=== PATIENT | male | born 1960 | race Caucasian/White ===

== ENCOUNTER → 2021-08-31 | Emergency (ER) | payer MEDICARE, MEDICAID ==
[~2021-08-31] VITALS: Ht 180.3 cm; Wt 95.5 kg
[~2021-08-31] MED LIST: LORazepam 2 mg/ml vial IM ONE; LORazepam 2 mg/ml vial ONE; OLANZapine **IM** 10 mg inj. IM ONE; OLANZapine 5mg rapidly disint. tablet PO ONE; PROL2.5I IM; RISP50DI IM; acetaminophen 325mg tablet PO ONE; diphenhydrAMINE 25mg capsule PO ONE; diphenhydrAMINE 50 mg/ml inj IM ONE; diphenhydrAMINE 50 mg/ml inj ONE; haloperidol lactate 5mg/ml inj IM ONE; haloperidol lactate 5mg/ml inj ONE; ondansetron 4mg rapidly disintigrating tab PO ONE; ziprasidone IM 20mg inj **IM only IM ONE
[2021-08-31 17:08] LABS: BASOPHILS % (AUTO) 0.6 % (0-1); EOSINOPHILS # (AUTO) 0.1 X10'3 (0-0.9); EOSINOPHILS % (AUTO) 1.6 % (0-6); HEMATOCRIT 43.8 % (42.0-52.0); HEMOGLOBIN 15.1 g/dl (14.0-17.9); LYMPHOCYTES % (AUTO) 20.2 % (21-51); MEAN CORPUSCULAR HEMOGLOBIN 30.4 PG (27.0-31.0); MEAN CORPUSCULAR HGB CONC 34.6 g/dL (33.0-36.5); MEAN CORPUSCULAR VOLUME 87.8 FL (78-98); MEAN PLATELET VOLUME 6.9 FL (7.4-10.4); MONOCYTES # (AUTO) 0.5 X10'3 (0-0.9); MONOCYTES % (AUTO) 9.8 % (2-12); NEUTROPHILS # (AUTO) 3.3 X10'3 (1.8-7.7); NEUTROPHILS % (AUTO) 67.8 % (42-75); PLATELET COUNT 189 X10'3 (140-440); RED BLOOD COUNT 4.98 X10'6 (4.70-6.10); RED CELL DISTRIBUTION WIDTH 13.5 % (11.5-14.5); WHITE BLOOD COUNT 4.8 X10'3 (4.5-11.0)
[2021-08-31 17:32] LABS: ALANINE AMINOTRANSFERASE 24 U/L (12-78); ALBUMIN 3.9 G/DL (3.4-5.0); ALBUMIN/GLOBULIN RATIO 1.1 (1.1-1.5); ALKALINE PHOSPHATASE 84 IU/L (46-116); ANION GAP 11 (8-16); ASPARTATE AMINO TRANSFERASE 31 U/L (10-37); BILIRUBIN,TOTAL 0.5 MG/DL (0.1-1.0); BLOOD UREA NITROGEN 10 MG/DL (7-18); BUN/CREATININE RATIO 8.3 (5.4-32.0); CALCIUM 9.2 MG/DL (8.5-10.1); CHLORIDE 105 MMOL/L (99-107); GLUCOSE 121 MG/DL (70-104); POTASSIUM 3.9 MMOL/L (3.5-5.1); SODIUM 144 MMOL/L (135-145); TOTAL CARBON DIOXIDE 27.9 MMOL/L (24-32); TOTAL PROTEIN 7.6 G/DL (6.4-8.2); eGFR 62 ML/MIN
--- NOTE | 2021-08-31 17:42 | NUR ---
PATIENT PUT IN GREEN GOWNS WITH UNDERGROUND MINING SECTION FOREMAN OFFICERS, BELONGINGS PUT IN BAG BY DEPUTIES.
[2021-08-31 17:44] LABS: ETHANOL < 0.010 GM/DL (0.0-0.010)
[2021-08-31 18:47] LABS: URINE AMPHETAMINE SCREEN NEGATIVE (Neg); URINE BARBITUATE SCREEN NEGATIVE (Neg); URINE BENZODIAZEPINES SCREEN NEGATIVE (Neg); URINE CANNABINOID SCREEN NEGATIVE (Neg); URINE COCAINE SCREEN NEGATIVE (Neg); URINE METHADONE SCREEN NEGATIVE (Neg); URINE OPIATE SCREEN NEGATIVE (Neg); URINE PHENCYCLIDINE SCREEN NEGATIVE (Neg)
--- NOTE | 2021-08-31 19:19 | NUR ---
The patient was moved to bed 26 in the ER overflow. He was quiet and pacing around his bed. At one point he was redirected back to his bed area by a male staff and he screamed back "Fuck you! You don't know who you are dealing with!" He did however go back to his bed. He was cooperative with the assessment however. He was asked why he was here and his reply was disarganized, fast, pressured and difficult to follow. He mentioned about something about [employer], television etc.
[2021-08-31 19:25] LABS: CLARITY,URINE CLEAR (Clear); COLOR,URINE YELLOW (Yellow); GLUCOSE, URINE NEGATIVE (Neg); KETONES,URINE NEGATIVE (Neg); LEUKOCYTE ESTERASE ,URINE NEGATIVE (Neg); NITRITES, URINE NEGATIVE (Neg); OCCULT BLOOD,URINE NEGATIVE (Neg); PH,URINE 7.5 (4.8-8.0); PROTEIN,URINE NEGATIVE (Neg); UA COLLECTION TYPE CLN CATCH MIDSTREAM; UROBILINOGEN,URINE 0.2 E.U/dL (0.2-1.0)
--- NOTE | 2021-08-31 19:56 | NUR ---
The patient is refusing medications and stated he has no problems but he would be willing to take methadone.
--- NOTE | 2021-08-31 20:27 | NUR ---
The patient is awake and pacing quietly by his bed
--- NOTE | 2021-08-31 20:27 | NUR ---
Packet faxed to [facility]
--- NOTE | 2021-08-31 22:36 | NUR ---
The patient is pacing quietly in front of the nursing station
--- NOTE | 2021-08-31 23:05 | NUR ---
Patient continues to pace and laughing quietly to himself
--- NOTE | 2021-09-01 00:46 | NUR ---
The patient just layed down on his bed after pacing for several hours.
--- NOTE | 2021-09-01 02:07 | NUR ---
The patient appears to be sleeping
--- NOTE | 2021-09-01 03:45 | NUR ---
THe patient is back up and quietly pacing in front of the nursing station
--- NOTE | 2021-09-01 05:27 | NUR ---
The patient was up the majority of the night quietly pacing in the [place]. He did nap for brief periods
--- NOTE | 2021-09-01 08:51 | NUR ---
Patient is mostly pacing all morning, right now patient is laying in his bed resting tossing from side to side. Pending medicine orders.
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
--- NOTE | 2021-09-01 11:06 | NUR ---
Called [facility] requesting LPS paper sent over to add to his packet
--- NOTE | 2021-09-01 11:16 | NUR ---
Bay is laying on his bed, with the head of his bed up, arms crossed. Patient did give this telegraphic typewriter installer the thumbs up when walking by.
--- NOTE | 2021-09-01 11:54 | NUR ---
LPS papers place in chart. this wrtier called [facility] this am asking for [employer] papers, [place]
--- NOTE | 2021-09-01 15:32 | NUR ---
Patient has been resting in bed since 9 this morning, patient has gotten up to use the restroom three times and ate 100% of lunch and asked for a second tray, this unit did have a extra tray and patient ate all of that tray as well. Bay will answer general question with yes and no, this speech writer did not attemept to talk about medication or any type of behavior that will be allowed on this unit. Bay has been calm and pleasant up to this point.
--- NOTE | 2021-09-01 18:12 | NUR ---
Patient up pacing waitng for dinner. No distress noted
--- NOTE | 2021-09-01 19:15 | NUR ---
The patient has been up and pacing periodically in the hallway. Attempted to ask the patient questions but he just shrugged his shoulders and did not give any verbal replies. He is laughing to himself. Eye contact is minimal. He is not able to state a plan for food group home or clothing.
[2021-09-01] MEDS: OLANZapine 5mg rapidly disint. tablet PO SCH (20:00)
--- NOTE | 2021-09-01 20:20 | NUR ---
The patient is very internally preoccupied. Can be heard laughing to himself and at one point screamed out for no apparent reason. He is shadow boxing at the end of his bed.
--- NOTE | 2021-09-01 20:54 | NUR ---
The patient is is pacing quietly in front of the nursing station.
--- NOTE | 2021-09-01 22:15 | NUR ---
The patient is yelling out but is on his bed
--- NOTE | 2021-09-01 23:55 | NUR ---
The patient is slowly pacing in front of the nursing station. He is at times talking to himself and at other times laughing to himself.
--- NOTE | 2021-09-02 01:46 | NUR ---
The patient is up and pacing
--- NOTE | 2021-09-02 04:18 | NUR ---
The patient is up and pacing
--- NOTE | 2021-09-02 05:27 | NUR ---
The patient is agitated screaming telling staff "fuck you nigger!"
--- NOTE | 2021-09-02 05:52 | NUR ---
The patient suddenly became extremely agitated and started charging staff and spitting on the floor. He was redirected back to his bed but he replied, "Fuck you nigger!" Rodrick horn called. Patient placed on the floor and contained. Dr. Teague made aware and IM med orders were received. Patient moved to his bed and placed in 4 point restraints.
--- NOTE | 2021-09-02 06:03 | NUR ---
attempted to assess the patient for injury but the patient stated, "fuck you!" and would not answer any questions.
--- NOTE | 2021-09-02 06:30 | NUR ---
RN received pt. awake, lying in supine position in 4 point restraints in bed. Pt.'s vitals obtain with BP 129/80, HR 90, SP02 95%, and HR 20. Addendum: 09/02/21 at 0652 by CASSIE Correction, Resp 20.
--- NOTE | 2021-09-02 07:15 | NUR ---
Pt. yelling, "I want out!" RN attempted to debrief with pt. regarding his aggressive behavior. Pt. states, "I takes two to tango". Pt. deemed unsafe to release from restraints.
[2021-09-02] MEDS: OLANZapine 5mg rapidly disint. tablet PO SCH ×2 (08:00→19:37)
--- NOTE | 2021-09-02 08:00 | NUR ---
Pt. assessed by Dr. Guardado.
--- NOTE | 2021-09-02 08:25 | NUR ---
Pt. released from 3 of 4 restraints. Pt.'s right ankle mainted in restraint. Pt. ate all of his breakfast and went to sleep.
--- NOTE | 2021-09-02 11:20 | NUR ---
Pt. had x1 episode of emesis that consisted of his breakfast.
--- NOTE | 2021-09-02 12:00 | NUR ---
Restraints discontinued per provider order.
--- NOTE | 2021-09-02 14:00 | NUR ---
Pt. asleep in bed.
--- NOTE | 2021-09-02 16:00 | NUR ---
Pt. awake and sitting up in bed.
--- NOTE | 2021-09-02 19:00 | NUR ---
The patient refusing to speak with staff. He has been resting on his bed. He did not eat his dinner.
--- NOTE | 2021-09-02 20:23 | NUR ---
The patient up to use the bathroom but then right back to bed.
--- NOTE | 2021-09-02 21:42 | NUR ---
The patient appears to be sleeping
--- NOTE | 2021-09-02 23:02 | NUR ---
The patient appears to be sleeping
--- NOTE | 2021-09-03 00:13 | NUR ---
The patient appears to be sleeping
--- NOTE | 2021-09-03 02:00 | NUR ---
The patient appears to be sleeping
--- NOTE | 2021-09-03 04:59 | NUR ---
The patient appears to be sleeping
--- NOTE | 2021-09-03 06:30 | NUR ---
Pt. awake and resting in bed.
--- NOTE | 2021-09-03 08:30 | NUR ---
Pt. ate breakfast and went back to sleep in bed.
--- NOTE | 2021-09-03 10:15 | NUR ---
Pt. had x2 episodes of scant red colored emesis. Provider contact and orders received for CBC and and occult stool. Pt. cooperative with lab draw.
[2021-09-03] MEDS: OLANZapine 5mg rapidly disint. tablet PO SCH ×2 (10:23→19:31)
[2021-09-03 11:06] LABS: BASOPHILS % (AUTO) 0.2 % (0-1); EOSINOPHILS # (AUTO) 0.1 X10'3 (0-0.9); EOSINOPHILS % (AUTO) 0.8 % (0-6); HEMATOCRIT 38.5 % (42.0-52.0); HEMOGLOBIN 13.2 g/dl (14.0-17.9); MEAN CORPUSCULAR HEMOGLOBIN 30.1 PG (27.0-31.0); MEAN CORPUSCULAR HGB CONC 34.3 g/dL (33.0-36.5); MEAN CORPUSCULAR VOLUME 87.7 FL (78-98); MONOCYTES # (AUTO) 0.7 X10'3 (0-0.9); MONOCYTES % (AUTO) 8.8 % (2-12); NEUTROPHILS # (AUTO) 6.5 X10'3 (1.8-7.7); NEUTROPHILS % (AUTO) 78.2 % (42-75); PLATELET COUNT 163 X10'3 (140-440); RED BLOOD COUNT 4.39 X10'6 (4.70-6.10); RED CELL DISTRIBUTION WIDTH 13.4 % (11.5-14.5); WHITE BLOOD COUNT 8.3 X10'3 (4.5-11.0)
--- NOTE | 2021-09-03 11:15 | NUR ---
Pt. refused Zofran, states that he is not currently nauseas.
--- NOTE | 2021-09-03 12:15 | NUR ---
Pt. awake and pacing.
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
--- NOTE | 2021-09-03 16:30 | NUR ---
Pt. asleep on let side. Pt. in no apparent distress.
--- NOTE | 2021-09-03 18:00 | NUR ---
Pt. sleeping in bed on right side. Pt. in no apparent distress.
--- NOTE | 2021-09-03 19:37 | NUR ---
The patient is isolating on his bed. He is not engaging with staff or peers. He initially refused to take his zyprexa but when given the option of taking the medication orally or receiving it IM he did end up taking the zyprexa zydis. He was observed until the zydis had a chance to melt in his mouth.
--- NOTE | 2021-09-03 20:32 | NUR ---
The patient is resting on his bed
--- NOTE | 2021-09-04 01:24 | NUR ---
The patient is awake and pacing at his bedside. He changed his bed linens. He appears to be responding to internal stimuli and making angry comments something about high school.
--- NOTE | 2021-09-04 02:24 | NUR ---
THe patient has been laying on his bed but up at this time pacing by his bed.
--- NOTE | 2021-09-04 03:53 | NUR ---
THe patient is resting on his bed with no apparent agitation
--- NOTE | 2021-09-04 04:36 | NUR ---
The patient appears to be asleep on his bed
--- NOTE | 2021-09-04 07:00 | NUR ---
Pt awoke to use the bathroom and is laying in bed without complaints.
[2021-09-04] MEDS: OLANZapine 5mg rapidly disint. tablet PO SCH ×2 (07:16→20:10)
--- NOTE | 2021-09-04 09:00 | NUR ---
Pt up for breakfast which he ate standing up, then he paced the unit which he continues to do. Pt calm without signs of agitation.
--- NOTE | 2021-09-04 11:05 | NUR ---
Pt lying in bed sleeping without signs of distress.
--- NOTE | 2021-09-04 13:02 | NUR ---
Pt has been lying quietly in bed, occasionally getting up to use the bathroom. Pt remains calm without acting out bx.
--- NOTE | 2021-09-04 15:00 | NUR ---
Pt remains asleep without signs of distress. Pt up x 1 to the bath room. Pt slept through lunch.
--- NOTE | 2021-09-04 17:04 | NUR ---
Pt has been up pacing for about an hour and has yelled out twice seemingly to internal stimuli.
--- NOTE | 2021-09-04 19:28 | NUR ---
Patient went to restroom and is now pacing floor quietly.
--- NOTE | 2021-09-04 19:35 | NUR ---
patient has used the restroom 4 times in the last half hour. This RN asked patient if he is okay and he just shrugged. will cont to monitor.
--- NOTE | 2021-09-04 23:36 | NUR ---
patient pacing floor, drinking alot of water asked patient to slow down or he will make himself sick. Put water down and is sitting on side of bed for now.
--- NOTE | 2021-09-05 01:40 | NUR ---
patient came out of his bed almost in a sprint demanding reading material. Provided two books.
--- NOTE | 2021-09-05 02:02 | NUR ---
patient came back out to nurses desk, started grabbing binders on nurses desk, asking for law books. Explained to patient that we do not have any as this is a hospital. patient then asked for a bible, bible provided, went back to his bed.
--- NOTE | 2021-09-05 02:13 | NUR ---
patient acting very manic, provided snacks and a new book. patient in bed for now reading.
--- NOTE | 2021-09-05 05:01 | NUR ---
patient has not sleep all night.
--- NOTE | 2021-09-05 05:48 | NUR ---
patient sitting on side of bed talking to himself quitely and laughing to himself.
[2021-09-05] MEDS: OLANZapine 5mg rapidly disint. tablet PO SCH ×2 (08:14→19:30)
--- NOTE | 2021-09-05 08:31 | NUR ---
Pt pacing this morning. Drinking decaf coffee and water. Cooperative. Took am med with coffee. Ate breakfast
--- NOTE | 2021-09-05 11:54 | NUR ---
Pt had emesis at bedside in emesis basin. RN and PCT both tried to get basin and check on pt. Pt states "Back off" and louder each time. He states something about "this is evidence". RN asked if she could see the emesis basin for eval or if he was feeling sick or wanted meds and he states louder "back off ".
--- NOTE | 2021-09-05 12:58 | NUR ---
Pt continues to refuse staff to get emesis basin to clean out. He lays in bed does not respond to questions,.
--- NOTE | 2021-09-05 16:59 | NUR ---
Pt sleeping, allowed PCT to obtain VS.
--- NOTE | 2021-09-05 19:17 | NUR ---
The patient is resting on his bed and can be heard quietly laughing to himself.
--- NOTE | 2021-09-05 19:55 | NUR ---
The patient is resistive to nursing interventions. He wants to be left alone. He declined physical assessment. He currently denies nausea. He did take his zyprexa as ordered without difficulty.
--- NOTE | 2021-09-05 22:07 | NUR ---
The patient appears to be sleeping
--- NOTE | 2021-09-06 00:07 | NUR ---
The patient appears to be sleeping
--- NOTE | 2021-09-06 01:53 | NUR ---
The patient was awake and asked politely for coffee and now appears to be laying back down.
--- NOTE | 2021-09-06 03:58 | NUR ---
The patient up to use the bathroom but now back in bed.
--- NOTE | 2021-09-06 05:03 | NUR ---
THe patient appears to be sleeping
--- NOTE | 2021-09-06 05:59 | NUR ---
Refuses vital signs
--- NOTE | 2021-09-06 06:23 | NUR ---
The patient up pacing on the unit. Not engaging with staff verbally.
[2021-09-06] MEDS: OLANZapine 5mg rapidly disint. tablet PO SCH ×3 (07:20→20:00)
--- NOTE | 2021-09-06 07:40 | NUR ---
The patient agiated. Refusing PO medications. Spitting at staff. Dr. Bryant made aware and orders received. Security at the bedside and the patient did cooperate with getting IM medications.
--- NOTE | 2021-09-06 07:49 | NUR ---
The patient sitting on his bed laughing to himself. Appears to be responding to internal stimuli.
--- NOTE | 2021-09-06 10:18 | NUR ---
The patient appears to be sleeping at this time. He has a good appetite and had two meal trays at breakfast.
--- NOTE | 2021-09-06 10:47 | NUR ---
The patient appears to be sleeping
--- NOTE | 2021-09-06 12:01 | NUR ---
The patient is resting on his bed and appears to be asleep at this time.
--- NOTE | 2021-09-06 13:10 | NUR ---
Patient yelling profanities for a brief period.
--- NOTE | 2021-09-06 13:11 | NUR ---
Patient screaming "Abell! god damn it!" but he is not getting off his bed. He may be responding to internal stimuli.
--- NOTE | 2021-09-06 13:18 | NUR ---
Patient sitting on the side of the bed and spitting on the floor. He is agitated but staying on his bed.
--- NOTE | 2021-09-06 13:41 | NUR ---
Patient stated he was spitting on the floor because he had IM meds earlier in the day.
--- NOTE | 2021-09-06 14:07 | NUR ---
Discussed case with PA. Med orders received.
--- NOTE | 2021-09-06 14:44 | NUR ---
THe patient is less agitated and laying quietly on his bed.
--- NOTE | 2021-09-06 16:00 | NUR ---
The patient appears to be sleeping
--- NOTE | 2021-09-06 17:12 | NUR ---
The patient appears to be sleeping
--- NOTE | 2021-09-06 20:44 | NUR ---
Pt refused hs Zyprexa. Dr Drake notified no new orders.
--- NOTE | 2021-09-06 21:30 | NUR ---
Moved [facility] ER room 7. Pt continues to refuse meds after repeated attempts.
--- NOTE | 2021-09-06 23:15 | NUR ---
Pt has been pacing back and forth in room since transfer. Does not answer questions.
--- NOTE | 2021-09-07 01:30 | NUR ---
Pt continues to pace back and forth in room.
--- NOTE | 2021-09-07 03:24 | NUR ---
Pt sleeping at this time.
--- NOTE | 2021-09-07 04:16 | NUR ---
Pt up in room asked about Breakfast then gave a fist bump and smiled.
--- NOTE | 2021-09-07 05:48 | NUR ---
Pt pacing back and forth in room.
--- NOTE | 2021-09-07 06:15 | NUR ---
Patient brought back to Room 26 in his bed from the main ED. Patient with a big smile on his face and said he enjoyed the ride. Continue to monitor.
[2021-09-07] MEDS: OLANZapine 5mg rapidly disint. tablet PO SCH ×2 (08:00→20:22)
--- NOTE | 2021-09-07 08:36 | NUR ---
Patient is walking around eating breakfast. No distress observed. Continue to monitor.
--- NOTE | 2021-09-07 08:40 | NUR ---
Patient refused his morning meds. RN advised patient that he would be getting an injection. Patient throws up his hands and walks away. RN advised Dr Salas who ordered 10 mg Zyprexa I.M. Continue to monitor.
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
--- NOTE | 2021-09-07 11:11 | NUR ---
Patient pacing up and down in front of the nurses station. No distress observed. Continue to monitor.
--- NOTE | 2021-09-07 13:13 | NUR ---
Patient just finished lunch and is now laying down. No distress observed. Continue to monitor.
--- NOTE | 2021-09-07 15:00 | NUR ---
Patient started spitting in the trash can and then he vomited. Looked clear with some mucus. Patient drinks a lot of water. Patient refused towel for himself which was offered by RN. RN asked if he had a stomach ache and patient said no. "I am vomiting because of the ice you gave me." Patient is paranoid and that is why he refuses his medication everyday. Continue to monitor.
--- NOTE | 2021-09-07 16:45 | NUR ---
Patient laying in bed awake. Emesis x 3 and not in the last 1.[address] Ricardo who will come asses when he can. Continue to monitor.
--- NOTE | 2021-09-07 17:30 | NUR ---
PT REFUSED VITALS
--- NOTE | 2021-09-07 19:19 | NUR ---
pt was in bed resting at change of shift with his eyes open, does not acknowledge staff when spoken to.
--- NOTE | 2021-09-07 19:56 | NUR ---
pt up partially filled his pitcher w/water and returned to bed.
--- NOTE | 2021-09-07 20:07 | NUR ---
pt was quietly standing and eating his dinner.
--- NOTE | 2021-09-07 20:24 | NUR ---
Pt initially refused PO zyprexa, ate his dinner. IM Zyprexa was ordered and when patient was done eating he said hello. Asked patient if he wanted his meds and he said "sure." Handed patient his med cup and he took PO zyprexa. Asked patient how his day was and he shrugged, asked him if he feels like his medicine is working for him? Pt replied "I feel mentally healthy." Pt is pacing at the end of his bed and scratching his head.
--- NOTE | 2021-09-07 22:19 | NUR ---
Pt in bed asleep rr even and unlabored
--- NOTE | 2021-09-07 23:58 | NUR ---
pt appears to be sleeping
--- NOTE | 2021-09-08 01:49 | NUR ---
pt appears to be sleeping
--- NOTE | 2021-09-08 03:45 | NUR ---
Pt is awake drinking water and pacing, Pt is filling up his pitcher partially full. Pt mumbles "good morning" then corrects himself and shouts "good morning."
--- NOTE | 2021-09-08 06:25 | NUR ---
Patient sitting on the side of his bed. No distress observed. Continue to monitor.
--- NOTE | 2021-09-08 07:10 | NUR ---
Patient drinking coffee and states loudly "I'm doing great!". Patient has been calm and in no distress.
[2021-09-08] MEDS: OLANZapine 5mg rapidly disint. tablet PO SCH ×2 (07:26→20:33)
--- NOTE | 2021-09-08 07:40 | NUR ---
Patient gladly took his oral medication. Patient is smiling and chatting with the nurse/techs. Continue to monitor.
--- NOTE | 2021-09-08 08:20 | NUR ---
Patient eating. No distress observed. Continue to monitor.
--- NOTE | 2021-09-08 09:25 | NUR ---
Suzanne cam in ED - 09/08/21 at 1033 by JANEY RN suctions patient when she hear's him cough and when he asks. Continue to monitor.
--- NOTE | 2021-09-08 10:14 | NUR ---
Bay is calm and in no distress, pacing in front of nurses station. Continue to monitor.
--- NOTE | 2021-09-08 10:31 | NUR ---
Note [email or web address] in EDM - 09/08/21 at 1034 by JANEY RN suctioned patient's mouth and changed his gown due to being wet. Patient asked for me to open his diaper for his skin's sake. RN complied and covered him with a sheet. Patient content at the moment. Continue to monitor.
--- NOTE | 2021-09-08 12:36 | NUR ---
Patient walking in front of nurses station drinking coffee. No distress observed. Continue to monitor.
--- NOTE | 2021-09-08 14:55 | NUR ---
Patient at the nurse's station talking about the Father;Son and Holy Ghost and smiling. Patient is happy disorganized AEB, smiling at RN and having word salad "radio, water, heaven, Holy Ghost". Then patient slaps the counter with his hand and gives RN big smile and goes back to pacing. Continue to monitor.
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
--- NOTE | 2021-09-08 17:11 | NUR ---
Patient has been so happy today and I have never heard him speaking as much as he did today. Patient spoke of his son who is in eighth grade and spoke of his sister. Patient smiling and chatting with staff. No distress observed. Continue to monitor.
--- NOTE | 2021-09-08 23:49 | NUR ---
patient is having a good night, in good spirits, talking about angels, the bible and the [employer] brother[employer]. Has had 4 cups of decaf coffee and took his po meds with no problems. patient has been pacing since shift started. Patient ate second meal tray left over. Has used the restroom several times. Patient has now laid down in his bed and is resting.
--- NOTE | 2021-09-09 00:20 | NUR ---
patient was resting in bed when he stood up suddenly and yelled " FUCK" multiple times. I asked patient to calm down and he started pacing speaking loudly of [employer], [employer], sin, and hearing aids. Then he started repeating " son of bitch" a few times and stopped talking. patient is now pacing silently.
--- NOTE | 2021-09-09 00:38 | NUR ---
patient sitting on side of bed
--- NOTE | 2021-09-09 03:51 | NUR ---
patient back to pacing, asking for coffee, no outbursts.
--- NOTE | 2021-09-09 06:54 | NUR ---
Received pt. awake, laying in bed with the lights on at the beginning of the shift, rr are even and unlabored.
[2021-09-09] MEDS: OLANZapine 5mg rapidly disint. tablet PO SCH ×2 (07:55→19:32)
--- NOTE | 2021-09-09 08:53 | NUR ---
Pt. was cooperative with medications while security stood by. He is sleeping in bed at this time.
--- NOTE | 2021-09-09 09:40 | NUR ---
Pt. sleeping in bed at this time, laying on his left side, rr even and unlabored.
--- NOTE | 2021-09-09 10:31 | NUR ---
Pt. continues to sleep, laying on his right side at this time, no s/s of distress noted.
--- NOTE | 2021-09-09 12:22 | NUR ---
Pt. continues to sleep at this time, resting in bed with HOB elevated.
--- NOTE | 2021-09-09 13:56 | NUR ---
Pt. continues to sleep at this time, laying on his left side, rr even and unlabored.
--- NOTE | 2021-09-09 15:06 | NUR ---
Pt. awake at this time, standing by his bed having a snack. No s/s of distress noted, will continue to monitor.
--- NOTE | 2021-09-09 17:25 | NUR ---
Pt. sleeping at this time with light on, rr are even and unlabored.
--- NOTE | 2021-09-09 19:37 | NUR ---
The patient has been laying on his bed quietly resting. He did get up and eat his dinner. He also allowed a brief physical assessment. He took his HS zyprexa without incident.
--- NOTE | 2021-09-09 22:02 | NUR ---
The patient appears to be sleeping
--- NOTE | 2021-09-10 00:21 | NUR ---
The patient appears to be sleeping
--- NOTE | 2021-09-10 01:50 | NUR ---
The patient appears to be sleeping
--- NOTE | 2021-09-10 03:01 | NUR ---
The patient is up and pacing in front of his bed. Can be heard quietly whispering to himself.
--- NOTE | 2021-09-10 03:44 | NUR ---
The patient is resting on his bed.
--- NOTE | 2021-09-10 05:10 | NUR ---
The patient appears to be sleeping
--- NOTE | 2021-09-10 07:00 | NUR ---
Received Pt in bed sleeping w/o distress.
[2021-09-10] MEDS: OLANZapine 5mg rapidly disint. tablet PO SCH ×2 (08:35→20:32)
--- NOTE | 2021-09-10 09:00 | NUR ---
Pt woke and ate breakfast. In pleasant mood and recognised this RN from a different hospitalization. Pt took AM med and paced unit a bit.
--- NOTE | 2021-09-10 11:45 | NUR ---
Pt in bed sleeping w/o distress.
--- NOTE | 2021-09-10 14:30 | NUR ---
Pt woke and ate lunch. Pt laid down in bed and fell cback asleep and remains sleeping w/o distress.
--- NOTE | 2021-09-10 17:51 | NUR ---
Pt remains in bed sleeping w/o distress.
--- NOTE | 2021-09-10 19:00 | NUR ---
The patient was resting on his bed. He was polite when approached. He denied voices.
--- NOTE | 2021-09-10 20:40 | NUR ---
The patient was awakened for his evening medications. He initially stated gruffly "give me the shot" But he was easily talked into just taking it by mouth.
--- NOTE | 2021-09-10 22:27 | NUR ---
The patient appears to be sleeping
--- NOTE | 2021-09-11 00:54 | NUR ---
The patient appears to be sleeping but was up briefly to use the restroom
--- NOTE | 2021-09-11 01:54 | NUR ---
The patient appears to be sleeping
--- NOTE | 2021-09-11 03:58 | NUR ---
THe patient is resting on his bed.
--- NOTE | 2021-09-11 05:28 | NUR ---
The patient appears to be sleeping
--- NOTE | 2021-09-11 07:00 | NUR ---
Received pt awake in bed. Pt cooperative with am assessment and requested coffee.
[2021-09-11] MEDS: OLANZapine 5mg rapidly disint. tablet PO SCH ×2 (07:10→20:00)
--- NOTE | 2021-09-11 09:00 | NUR ---
Pt took am meds without issue and requested a shower. Pt escorted up to [facility] with RN and 3 security officers and he was able to shower. Pt cooperative and appreciative. Pt currently sleeping in bed.
--- NOTE | 2021-09-11 11:00 | NUR ---
Pt sleeping in bed without complaints.
--- NOTE | 2021-09-11 15:45 | NUR ---
Patient sleeping no distress noted.
--- NOTE | 2021-09-11 17:29 | NUR ---
Bay is resting in his bed, eye are closed until he heres foot steps, patient states "I am fine". Patient has had no out bursts today. No prns given, patient did aske for a morning shower, Fritz Fox and took patient to [facility] for a shower, patient is independent with his ADL's
--- NOTE | 2021-09-11 18:45 | NUR ---
Patient is sleeping on his right side, bed is in a low fowlers position.
--- NOTE | 2021-09-11 19:34 | NUR ---
Patient remains sleeping, no distress. Frequent rounding for patient safety.
--- NOTE | 2021-09-11 20:22 | NUR ---
Patient remains sleeping. Plan to administer Zyprexa when patient awakens.
--- NOTE | 2021-09-11 23:06 | NUR ---
Patient continues to sleep quietly. He has not awoken this shift. Patient self repositions in bed.
--- NOTE | 2021-09-12 01:26 | NUR ---
Patient is awake now. He is ambulating the unit. Patient is given water and hot chocolate. Patient is cooperative, he gives this travel writer a thumbs up.
--- NOTE | 2021-09-12 01:28 | NUR ---
Patient is sleeping quietly, low fowlers position in bed. No distress.
--- NOTE | 2021-09-12 02:12 | NUR ---
Patient ambulated around, he yelled "God damn it!" Patient then returned to bed. He then returned t sleep.
--- NOTE | 2021-09-12 03:18 | NUR ---
Patient is awake and pacing back and forth.
--- NOTE | 2021-09-12 03:59 | NUR ---
Patient sleeping again. Low fowlers position.
--- NOTE | 2021-09-12 05:59 | NUR ---
Patient up to bathroom, then back to bed.
--- NOTE | 2021-09-12 07:22 | NUR ---
Patient is laying on his right side sleeping. Respirations are even and nonlabored.
--- NOTE | 2021-09-12 07:23 | NUR ---
Patient up to the bathroom.
[2021-09-12] MEDS: OLANZapine 5mg rapidly disint. tablet PO SCH ×2 (08:23→19:48)
--- NOTE | 2021-09-12 09:04 | NUR ---
Attempt was made at made pass, patient told me "stay back", and moved his arm as if he were going to hit me if I came any closer. Security called and patient took medication without further difficulty.
--- NOTE | 2021-09-12 09:29 | NUR ---
Patient is pacing around his bed. No distress noted.
--- NOTE | 2021-09-12 12:35 | NUR ---
Patient is lying supine in bed with eyes open. No distress noted.
--- NOTE | 2021-09-12 14:58 | NUR ---
[facility] here to evaluate patient. [id number] renewed.
--- NOTE | 2021-09-12 17:15 | NUR ---
Patient sleeping on his right side. Respirations are even and nonlabored.
--- NOTE | 2021-09-12 17:43 | NUR ---
Attempted to obtain vital signs and patient sat up on the edge of his bed. I asked to apply the pulse ox and he did, then immediately took it off and said "Here, take it!" Patient laid back down and mubbled "Does it look like I'm awake?" Nurse and I did not want to press the issue. Will attempt vital signs when pt seems more cooperative.
--- NOTE | 2021-09-12 18:21 | NUR ---
The patient is calm and eating his dinner. He is currently also watching TV
--- NOTE | 2021-09-12 19:54 | NUR ---
The patient is enjoying himself watching TV. Took his medications with no problem.
--- NOTE | 2021-09-12 21:37 | NUR ---
The patient continues to watch TV. He has been cooperative and pleasant.
--- NOTE | 2021-09-13 01:08 | NUR ---
The patient is still up and watching TV. He has been pleasant.
--- NOTE | 2021-09-13 02:20 | NUR ---
The patient appears to be sleeping
--- NOTE | 2021-09-13 03:45 | NUR ---
THe patient is resting on his bed
--- NOTE | 2021-09-13 05:31 | NUR ---
The patient is resting on his bed.
--- NOTE | 2021-09-13 06:46 | NUR ---
The patient is in good spirits and up watching TV and drinking coffee
[2021-09-13] MEDS: OLANZapine 5mg rapidly disint. tablet PO SCH ×2 (07:45→20:00)
--- NOTE | 2021-09-13 07:48 | NUR ---
The patient remains in good spirits. He took his morning medications. He is drinking coffee and watching TV.
--- NOTE | 2021-09-13 10:03 | NUR ---
The patient is resting on his bed
--- NOTE | 2021-09-13 11:28 | NUR ---
Updated notes faxed to [facility] as per their request.
--- NOTE | 2021-09-13 11:29 | NUR ---
The patient appears to be sleeping
--- NOTE | 2021-09-13 13:06 | NUR ---
The patient is awake and eating his lunch. He is pleasant and cooperative.
--- NOTE | 2021-09-13 14:48 | NUR ---
The patient is resting on his bed watching tv
--- NOTE | 2021-09-13 17:40 | NUR ---
THe patient is resting on his bed.
--- NOTE | 2021-09-13 19:20 | NUR ---
The pt finished his dinner and is currently wathcing TV, no distress noted.
--- NOTE | 2021-09-13 19:51 | NUR ---
At med time the pt states "this is forced isnt it? If I dont take this I have to have security up my ass." This RN stated that if he didnt take his medication that he will get a shot. The pt took his medication and said "this is bull."
--- NOTE | 2021-09-13 23:10 | NUR ---
THe pt appears to be sleeping.
--- NOTE | 2021-09-14 01:30 | NUR ---
The pt has been up eating ice chips watching TV.
--- NOTE | 2021-09-14 03:17 | NUR ---
The pt is resting on his bed.
--- NOTE | 2021-09-14 07:25 | NUR ---
Pt woke and went to bathroom, back to his bed with eyes closed.
[2021-09-14] MEDS: OLANZapine 5mg rapidly disint. tablet PO SCH ×2 (08:20→19:24)
--- NOTE | 2021-09-14 09:03 | NUR ---
Hot Tamale Man attempted to have a one on one with patient to assess mental health symptoms. Pt declined to answer, no aggressive gestures noted. Pt was compliant with medication, no gestures or verbal dispute noted.
--- NOTE | 2021-09-14 09:30 | NUR ---
Pt sleeping comfortably, respirations even and unlabored. Auditory snoring sounds noted. Pt ate 100% of his breakfast.
--- NOTE | 2021-09-14 11:36 | NUR ---
Pt sleeping comfortably audible snoring sounds noted. Respirations even and unlabored.
--- NOTE | 2021-09-14 12:40 | NUR ---
Financial Sales Consultant place lunch tray on side table pt grumbled "you have the audacity." He then rolled over and went back to sleep.
--- NOTE | 2021-09-14 13:33 | NUR ---
Pt sleeping restfully on his bed, no distress noted. Pt was up to the bathroom.
--- NOTE | 2021-09-14 15:38 | NUR ---
Pt awake watching T.V. Pt has no no outbursts, continues to isolate to his bed.
--- NOTE | 2021-09-14 17:38 | NUR ---
Pt was up to bathroom then returned to his bed. No outbursts noted this shift.
--- NOTE | 2021-09-14 18:02 | NUR ---
PT CALMLY REFUSED VITALS. HE STATED, "I'M GOOD".
--- NOTE | 2021-09-14 19:44 | NUR ---
Pt was lying in bed appeared to be sleeping. Pt was awoken for PM medication. Medication was dissolved in water. Pt took cup and began yelling "what am I taking!" "Why am I taking medication!" Pt didn't finish consuminng med and scientific writer asked him to finish it. Again pt yelled "Why am I taking this!" Biomedical Scientist told pt security would be called if he continued to yell and not take his medication. Security was called and pt immediately finished meds.
--- NOTE | 2021-09-14 21:14 | NUR ---
Pt has been pacing in front of his bed. Lying quietly in bed at this time.
--- NOTE | 2021-09-15 00:19 | NUR ---
Pt watched TV pleasant interactions with staff. Sleeping at this time.
--- NOTE | 2021-09-15 05:39 | NUR ---
Watching TV lying quietly in bed.
--- NOTE | 2021-09-15 07:24 | NUR ---
Pt continues to watch T.V. Pt was given coffee and said thank you. Pt plesant and calm.
[2021-09-15] MEDS: OLANZapine 5mg rapidly disint. tablet PO SCH ×2 (08:23→20:24)
--- NOTE | 2021-09-15 08:30 | NUR ---
Administered pt's 0800 Zyprexa. Medication dissolved in water, pt took without issue.
--- NOTE | 2021-09-15 09:25 | NUR ---
Pt lying on his bed watching T.V, no outbursts or agitation noted.
--- NOTE | 2021-09-15 11:33 | NUR ---
Pt appears to be sleeping comfortably, respirations even and unlabored.
--- NOTE | 2021-09-15 14:41 | NUR ---
Pt ate 100% of his lunch, awake for a short time then back to sleep. Pt is now resting comfortably. TV on at foot of bed.
--- NOTE | 2021-09-15 16:34 | NUR ---
Pt sleeping in supine position. Respirations even and unlabored.
--- NOTE | 2021-09-15 19:39 | NUR ---
Pt is currently asleep, no distress noted.
--- NOTE | 2021-09-15 22:00 | NUR ---
Pt up to the bathroom, took all HS medciation, watching TV in his bed quietly.
--- NOTE | 2021-09-16 01:05 | NUR ---
Pt watching TV quietly in his bed.
--- NOTE | 2021-09-16 05:05 | NUR ---
The pt is watching TV sitting up in bed.
--- NOTE | 2021-09-16 07:09 | NUR ---
Assumed care of patient, pt. in bed watching TV at this time. He smiles and greets this marketing writer. When questioned how he is doing he states with a smile and enthusiasm, "I'm doing great!"
[2021-09-16] MEDS: OLANZapine 5mg rapidly disint. tablet PO SCH ×2 (07:56→19:41)
--- NOTE | 2021-09-16 08:02 | NUR ---
Pt. pacing in front of the nurse's station awaiting breakfast. He is now sitting at bedside eating, will continue to monitor.
--- NOTE | 2021-09-16 10:19 | NUR ---
Pt. is sleeping in bed at this time, HOB elevated, he appears to be resting comfortably.
--- NOTE | 2021-09-16 11:13 | NUR ---
Per [facility], pt. is being considered for placement at [facility]. Facility requested pt's emar to verify medication compliance for at least 14 days. This record was obtained from pharmacy and sent to [facility].
--- NOTE | 2021-09-16 11:33 | NUR ---
Pt. continues to sleep at this time, appears to be resting comfortably.
--- NOTE | 2021-09-16 12:50 | NUR ---
Pt. is sleeping on his rt. side at this time, rr even and unlaored.
--- NOTE | 2021-09-16 14:32 | NUR ---
Pt. continues to sleep at this time, appears to be resting comfortably.
--- NOTE | 2021-09-16 16:04 | NUR ---
Pt. laying in bed watching TV at this time, no s/s of distress.
--- NOTE | 2021-09-16 17:14 | NUR ---
Pt. sitting up in bed eating a snack at this time, no s/s of distress noted.
--- NOTE | 2021-09-16 18:39 | NUR ---
The patient appears to be in good spirits. He is eating his dinner and watching TV
--- NOTE | 2021-09-16 20:47 | NUR ---
The patient has been sleeping on his bed. HS snack given.
--- NOTE | 2021-09-16 21:59 | NUR ---
The patient appears to be sleeping
--- NOTE | 2021-09-17 00:17 | NUR ---
The patient is resting on his bed and watching TV
--- NOTE | 2021-09-17 02:00 | NUR ---
The patient has been coughing. He is awake and watching tv. Vital signs 98.4, 101, 24, 131/80 and 02 sats 98% on RA.
--- NOTE | 2021-09-17 02:09 | NUR ---
MD made aware of patient cough. Orders received.
[2021-09-17] MEDS: benzocaine/menthol oral lozeng 1 EACH BOX MM PRN ×5 (02:33→17:57)
--- NOTE | 2021-09-17 03:33 | NUR ---
The patient is resting on his bed
--- NOTE | 2021-09-17 05:20 | NUR ---
The patient resting on his bed.
--- NOTE | 2021-09-17 06:33 | NUR ---
Assumed care of patient, pt. sitting up in bed drinking de-cafe coffee at this time. He smiles and greets this sports book writer appropriately.
--- NOTE | 2021-09-17 07:26 | NUR ---
Pt. up to use the BR at this time, he then paces aroud his room a short time before sitting back at bedside. Pt. continues to have an intermittent, non-productive cough. Chloraseptic Lozenges administered as needed with effectiveness. Lung sounds are clear to auscultation bilaterally, will continue to monitor.
[2021-09-17] MEDS: OLANZapine 5mg rapidly disint. tablet PO SCH ×3 (08:00→21:06)
--- NOTE | 2021-09-17 09:00 | NUR ---
Pt. refused ordered Zyprexa Zydis 15mg, he appears to have increased phychosis and states adamantly in a delusinal way, "I gambled and I lost the game." Security was called for a show of force, however pt. continued to refuse medication, he stated, "I don't swollow, I'm not a queer! You can't make me take that, it's assult and battery." This teletypewriter operator attempted to educate pt. that he is conserved and cannot refuse medications, however pt. continued to adamantly refuse and made a guesture as if he would slap this teletypewriter operator's hand away threatening, "Don't touch me!" Endorsed to Dr. Ricardo and obtained orders for Zyprexa 10mg IM and Benadryl 50mg IM. Pt. was cooperative with injections, and rolled onto his stomach when asked to by security. IM injections given in ventrogluteal areas on opposite sides. Pt. is laying in bed at this time, will continue to monitor. TV removed from pt's room and pt. was provided education that he must cooperate with the unit rules in order to have privileges. Addendum: 09/17/21 at 0948 by DIONICIO Security did place hands on pt. for a few minutes during injection just to ensure safety, pt. was at no time physically restrained.
--- NOTE | 2021-09-17 10:23 | NUR ---
Pt. is sitting up in bed at this time with HOB elevated. He appears somewhat restless AEB constantly moving bilateral feet and he is observed to be responding to aloud to what appears to be internal stimuli at times with a soft voice, will continue to monitor.
--- NOTE | 2021-09-17 11:09 | NUR ---
Pt. up pacing and requesting to use the television at this time. He was again provided education by this lyric writer that in order to use the television he must cooperate (take medications) while on the unit because use of the television is a privledge. Pt. continues to pace at this time back and fourth between his room and the bathroom. Will continue to monitor.
--- NOTE | 2021-09-17 12:29 | NUR ---
Pt. sleeping at this time with HOB elevated, rr even and unlabored.
--- NOTE | 2021-09-17 13:20 | NUR ---
Dr. Ricardo over to assess pt. at this time, pt. laying in bed with HOB elevated. He reports he has a productive cough, this policy writer sales provided pt. with a cup and asked him to show staff the mucus next time he produces. Per Dr. Ricardo, lung sounds are clear and no indication of a chest x-ray needed at this time. This policy writer sales also endorsed to MD pt's slightly elevated temperature, will continue to monitor. Pt. was provided with a PRN Chloraseptic Lozenge.
--- NOTE | 2021-09-17 15:46 | NUR ---
Pt. resting in bed at this time on his right side, he continues to cough intermittently. PRN Lozenge provided and pt. reports contentment, will continue to monitor.
--- NOTE | 2021-09-17 17:56 | NUR ---
Pt. is laying in bed at this time, HOB elevated, he requests a PRN Lozenge. Medication administered, pt. appears to be resting comfortably.
--- NOTE | 2021-09-17 19:00 | NUR ---
assumed care of pt from Wilma EWING, pt is walking back and forth from his bed to nurses desk, calm, quiet and cooperative
--- NOTE | 2021-09-17 20:43 | NUR ---
pt is sleeping, pt did not eat dinner tonight
--- NOTE | 2021-09-17 21:09 | NUR ---
pt refused zyprexa "I don't need it and I am refusing to take it"
--- NOTE | 2021-09-17 22:44 | NUR ---
Client up at 22:35 to go to the restroom. Returned to bed. Per report client refused PM meds.
--- NOTE | 2021-09-17 23:53 | NUR ---
Client is asleep. Coughs occasionally. Resp even and unlabored.
--- NOTE | 2021-09-18 01:38 | NUR ---
pt is pacing, asked for a throat lozenge.
--- NOTE | 2021-09-18 03:37 | NUR ---
pt is sleeping, no s/s of distress noted.
[2021-09-18] MEDS: benzocaine/menthol oral lozeng 1 EACH BOX MM PRN (05:47)
--- NOTE | 2021-09-18 07:11 | NUR ---
Bay was pacing at shift change and is now resting with the head of his bed up. Patient is responding to question appropriately with yes and no answers.
[2021-09-18] MEDS: OLANZapine 5mg rapidly disint. tablet PO SCH ×2 (08:45→20:20)
--- NOTE | 2021-09-18 08:50 | NUR ---
Offered patient am medication in 15ml of water, patient states "I am not mentally ill", patient went on to taking his medication, declined anything to rinse them down. Medication is ODT.
--- NOTE | 2021-09-18 10:12 | NUR ---
Patient was coughing last night and had a low grade temp. Covid test and CRX ordered. Patient declined CXR, Covid screening done with security at bed side
--- NOTE | 2021-09-18 10:14 | NUR ---
Covid Screening negative
--- NOTE | 2021-09-18 10:48 | NUR ---
Patient resting on his right side with covers over his head. No S/S of distress
--- NOTE | 2021-09-18 14:41 | NUR ---
Patient sitting up in bed, declined lunch this is this thrid meal he has declined. This show card writer offered Tylenol for general low grade fever and flater than normal affect, patient declined
--- NOTE | 2021-09-18 17:17 | NUR ---
Patient sleeping in bed with head of bed up, no signs of distress
--- NOTE | 2021-09-18 18:30 | NUR ---
Assumed patient care. He is sleeping quietly. No distress.
--- NOTE | 2021-09-18 19:30 | NUR ---
Patient is awake, he is cooperive. Patient exhibits poverty of thought. He is cooperative. Patient tells this functional tester typewriters that he would like to watch [employer], a television is provided.
--- NOTE | 2021-09-18 20:38 | NUR ---
relieving RN for break, pt is sitting in bed watching T.V., pt is calm, quiet and cooperative
--- NOTE | 2021-09-18 21:02 | NUR ---
Note keithone in EDM - 09/18/21 at 2105 by SHIRLEY Patient sleeping quietly, SP02 is 98%. 84 pulse. A MgS04 level is ordered. QT is borderling per PA.
--- NOTE | 2021-09-18 21:12 | NUR ---
Patient rests quietly in bed, mid fowlers position. He is watching television.
--- NOTE | 2021-09-18 22:37 | NUR ---
Patient is awake, mid fowlers position in bed, he is watching television.
--- NOTE | 2021-09-18 23:09 | NUR ---
Patient is sleeping low fowlers position in bed.
--- NOTE | 2021-09-19 04:07 | NUR ---
Patient is sleeping again, mid fowlers position. He coughs now and then. No distress noted.
--- NOTE | 2021-09-19 05:13 | NUR ---
Patient is awake, watching old westerns on television. When asked how the movies are the patient gives two thumbs up. The patient requested a lozenge for his cough. A lozenge was provided.
[2021-09-19] MEDS: benzocaine/menthol oral lozeng 1 EACH BOX MM PRN ×2 (05:15→11:17)
[2021-09-19] MEDS: OLANZapine 5mg rapidly disint. tablet PO SCH ×2 (08:00→19:17)
--- NOTE | 2021-09-19 11:18 | NUR ---
Patient coughs frequently. Dry in nature. Patient requests and was given a chloroseptic lozente. He rests quietly in a mid fowlers position watching television.
--- NOTE | 2021-09-19 12:23 | NUR ---
Patient is in a mid fowlers position, he is sleeping quietly on his right side.
--- NOTE | 2021-09-19 15:01 | NUR ---
Patient remains awake and watching television. He ate breakfast, he has slept through lunch as of yet.
--- NOTE | 2021-09-19 16:31 | NUR ---
Patient is awake, mid fowlers, watching television. No distress.
--- NOTE | 2021-09-19 19:40 | NUR ---
pt is watching tv. when asked how he is doing, he replied, "fantastic" pt accepted hs meds without issue.
--- NOTE | 2021-09-19 23:13 | NUR ---
pt is watching tv in bed. denies any needs at this time.
--- NOTE | 2021-09-20 00:49 | NUR ---
pt is watching tv
--- NOTE | 2021-09-20 03:21 | NUR ---
pt is watching tv
[2021-09-20] MEDS: benzocaine/menthol oral lozeng 1 EACH BOX MM PRN (05:12)
[2021-09-20 05:17] VITALS: BP 129/88
[2021-09-20] MEDS: OLANZapine 5mg rapidly disint. tablet PO SCH (08:00)
--- NOTE | 2021-09-20 09:33 | NUR ---
pt ate breakfast and accepted am meds. pt is now resting in bed.
--- NOTE | 2021-09-20 12:05 | NUR ---
pt is sitting in bed watching tv. no needs at this time.
== END ==
LOC: ER 16:31
DX: F20.9 Schizophrenia, unspecified (principal); Z20.822 Contact with and (suspected) exposure to COVID-19; I10 Essential (primary) hypertension; Z87.442 Personal history of urinary calculi; Z79.899 Other long term (current) drug therapy
CPT/HCPCS: 36415; 80053; 80305; 80320; 81003; 84443; 85025; 87635; 99285; C9803; 96372